=== PATIENT | female | born 1990 | race Caucasian/White ===

== ENCOUNTER 2017-08-05 19:32 | Outpatient (CLI) | payer OTHER ==
[2017-08-05] MEDS ORDERED: PRENATABS RX T1 EACH PO (20:34)
[2017-08-05] MEDS ORDERED: PROGESTERO50 MG/1 ML IM (22:24)
[2017-08-05] MEDS ORDERED: PNEU16DI2 (22:24)
== END 2017-08-06 16:35 | disposition home or self-care (01) ==
LOC: OBS/DEL 19:32
DX: O26.893 Other specified pregnancy related conditions, third trimester (principal); H53.8 Other visual disturbances; Z34.83 Encounter for supervision of other normal pregnancy, third trimester